=== PATIENT | male | born 1975 | race Two or more races ===

== ENCOUNTER 2017-12-06 22:39 | Emergency (ER) | payer SELFPAY ==
[~2017-12-06] VITALS: Ht 180.3 cm; Wt 82.0 kg
[2017-12-06 23:16] VITALS: BP 150/93
== END 2017-12-07 07:07 | disposition left against medical advice (07) ==
LOC: ER 22:39
DX: L02.818 Cutaneous abscess of other sites (principal); Z53.21 Procedure and treatment not carried out due to patient leaving prior to being seen by health care provider